=== PATIENT | male | born 1965 | race Caucasian/White ===

== ENCOUNTER 2025-05-26 17:40 | Emergency (ER) | payer OTHER, SELFPAY ==
[2025-05-26 17:43] VITALS: BP 124/99
[2025-05-26 18:10] LABS: Hematocrit 40.7 % (39.0-52.0); Hemoglobin 14.6 g/dL (13.0-18.0); Mean Corp Hgb Conc. 35.9 g/dL (33.0-37.0); Mean Corpuscular Volume 100.2 fL (80.0-94.0); Nucleated Red Blood Cells % 0 % (-); Platelet Count 164 10^3/uL (130-400); Red Cell Dist. Width 13.4 % (11.5-14.5)
[2025-05-26 18:32] LABS: ALT (SGPT) 24 U/L (0-50); AST (SGOT) 36 U/L (17-59); Albumin 4.6 g/dl (3.5-5.0); Alkaline Phosphatase 79 U/L (38-126); Blood Urea Nitrogen 22 mg/dl (9-20); Calcium 10.8 mg/dl (8.4-10.2); Carbon Dioxide 29 mmol/L (22-30); Chloride 106 mmol/L (98-107); Glucose 116 mg/dl (70-99); Potassium 4.2 mmol/L (3.5-5.1); Sodium 141 mmol/L (135-145); Total Protein 7.5 g/dl (6.3-8.2); eGFR > 60.00
--- NOTE | 2025-05-26 21:14 | ED.GENMED ---
History of Present Illness
General
Chief Complaint: Skin Problem
Source: patient
Exam Limitations: none
Time Seen by Provider: 05/26/25 20:37
History of Present Illness
History of Present Illness:
60yoM with a history of hypertension presenting for evaluation of a rash. Patient pulled 2 non-engorged ticks off of his scalp about 3 weeks ago. He developed a red itchy raised rash about 2 weeks ago. The rash is present on the chest and both
arms. The rash is very itchy and he admits to picking at his skin. He is also having fatigue. He researched his symptoms online and believes he has Lyme disease. He has been applying aloe vera and rubbing alcohol to his rash without any
improvement. He otherwise denies any new products. No fevers or chills.
Phy Exam
General Physical Exam
General Presentation: well appearing and no apparent distress
General Skin: warm and dry
General Habitus: normal
General Mental: alert
ENT Exam
ENT Exam: normocephalic
Pulmonary Exam
Pulmonary Exam: no respiratory distress
Neurological Exam
Neurological Exam: alert
Musculoskeletal Exam
Musculoskeletal Exam: other (Erythematous raised rash present to the chest in between breasts and bilateral arms. There is evidence of skin picking noted with scattered wounds to the arms. No evidence of purulence or cellulitis. No clinical findings
to suggest erythema migrans.)
Skin Exam
Skin Exam: warm/dry
Psychiatric Exam
Psychiatric Exam: normal mood/affect
Course
Orders/Labs/Results
Orders:
Orders
05/26/25 17:57
Complete Blood Count/With Diff Urgent
Comprehensive Metabolic Panel Urgent
Lyme Progressive Urgent
05/26/25 21:29
Prednisone [Deltasone] 50 mg PO NOW STA
Abnormal Lab Results
05/26/25
17:57
RBC 4.06 L 10^6/uL
(4.70-6.10)
MCV 100.2 H fL
(80.0-94.0)
MCH 36.0 H pg
(27.0-31.0)
BUN 22 H mg/dl
(9-20)
Glucose 116 H mg/dl
(70-99)
Calcium 10.8 H mg/dl
(8.4-10.2)
05/26/25 17:57
05/26/25 17:57
Vital Signs
Initial and Last Documented VS:
Initial Vital Signs
Temp Pulse Resp BP Pulse Ox
97.8 F 101 18 124/99 99
05/26/25 17:43 05/26/25 17:43 05/26/25 17:43 05/26/25 17:43 05/26/25 17:43
Last Documented Vital Signs
Temp Pulse Resp BP Pulse Ox
97.8 F 76 16 121/71 97
05/26/25 17:43 05/26/25 21:43 05/26/25 21:43 05/26/25 21:43 05/26/25 21:43
MDM/Problems Addressed
Differential Diagnosis Includes:
60yoM here with a red itchy rash x 2 weeks. Patient concerned for Lyme disease due to recent tick bite. VSS. There is an erythematous raised rash on exam with scattered wounds from skin picking. Rash present mainly to chest and arms. Suspect
nonspecific dermatitis. There is no clinical evidence of infection or erythema migrans. Labs obtained in triage and white count is normal. Lyme testing already sent. He is requesting antibiotics but we will await Lyme testing results for now as I
feel this is unlikely. He was started on a course of prednisone. He was advised to stop applying rubbing alcohol as this is likely worsening his skin irritation. Advised f/u with dermatology.
*Pulse Oximetry
SaO2: 99
Oxygen Mode of Delivery: Room air
Patient hypoxic: no (99%)
*Critical Care Note
Total Time (30-74mins, 75-104mins- exclusive of procedures): Not Applicable
ED Attending Note
-
Portions of this chart may have been created with voice recognition software.� Occasional wrong word or��sound alike� substitutions may have occurred due to the inherent limitations of voice recognition software.
Discharge Plan
Departure
Patient Disposition: Home (Routine Discharge)
Date of Disposition: 05/26/25
Time of Disposition: 21:29
Patient with high blood pressure during this ER visit?: No
Discharge Problem:
Rash and nonspecific skin eruption
Instructions: Skin Rash (DC)
Prescriptions:
New
prednisone 50 mg tablet
50 mg PO DAILY Qty: 4 0RF
Referrals:
Alcon Ayala MD [Active, Dermatology]
UNKNOWN - PT DOES,NOT KNOW [Family Provider]
Activity Restrictions/Additional Instructions:
Take prednisone as prescribed. Stop applying rubbing alcohol. You may take Benadryl as needed for itching.
We will call you if your Lyme test is positive.
Please follow-up with a senior auditor.
Interventions
Interventions:
*Risk Screen - Suicide Last Done: 05/26/25 17:43
*General Assessment Last Done: 05/26/25 17:43
*Neglect/Abuse Screening Last Done: 05/26/25 17:43
*Nursing Disposition Last Done: 05/26/25 21:50
ED-Skin Assessment Last Done: 05/26/25 21:41
Discharge Date and Time
Discharge Date/Time: 05/26/25 21:50
Print Language: SETSWANA
[2025-05-26] MEDS: DELTASONE 50 MG PO (21:36)
[2025-05-26 21:43] VITALS: BP 121/71
[2025-05-29 14:14] LABS: Lyme Antibody Screen, EIA Negative (Negative)
== END 2025-05-26 21:50 | disposition home or self-care (01) ==
LOC: EMR 17:40
PROVIDERS: Emergency Medicine; EMERGENCY PHYSICIAN Emergency Medicine
DX: R21 Rash and other nonspecific skin eruption (principal); I10 Essential (primary) hypertension
CPT/HCPCS: 99283; 80053; 85025; 86618